=== PATIENT | female | born 1980 | race Caucasian/White ===

== ENCOUNTER 2016-08-06 06:28 | Emergency (ER) | payer OTHER ==
[~2016-08-06] VITALS: Ht 167.6 cm; Wt 84.8 kg
[2016-08-06 06:37] VITALS: BP 144/87
--- NOTE | 2016-08-06 07:23 | ED HAND/WRIST INJURY COMPLAINT ---
History of Present Illness General Chief Complaint: General Adult Stated Complaint: LAC TO RT POINTER FINGER/FEELING DIZZY Source: patient Exam Limitations: no limitations Vital Signs & Intake/Output Vital Signs & Intake/Output Vital Signs Date Time Temp Pulse Resp B/P Pulse O2 O2 Flow FiO2 Ox Delivery Rate 08/06 0637 98.1 100 16 144/87 98 Room Air Room Air Allergies Uncoded Allergies: Med Allergies DENIES Reconcile Medications No Known Home Medications Triage Note: 36YO FEMALE TO RM 5 VIA AMB FROM WORK SP FEELING DIZZY AFTER CUTTING HER FINGER WHILE AT WORK. STATES SHE BEGAN WORK AT 0500AND HAS NOT HAD ANYTHING TO EAT YET. Triage Nurses Notes Reviewed? yes Occurred: this morning Duration: hour(s):, constant, continues in ED Timing: single episode today Injury Environment: work Severity: mild Pain/Injury Location: Right: 2nd finger. : No Patient currently breastfeeds: No HPI: PT PRESENTS FOR EVAL OF RIGHT INDEX FINGER LACERATION THAT OCCURED THIS AM WITH AT WORK. FELT DIZZY AT THE TIME. EMS CONTACTED. OTHER THAN WOUND PAIN, PT FEELS WELL. Past History Travel History Traveled to [place] past 21 day No Medical History Any Pertinent Medical History? see below for history Surgical History Surgical History: non-contributory Psychosocial History What is your primary language Yoruba Tobacco Use: Never used Family History Hx Contributory? No Review of Systems Review of Systems Constitutional: Reports: no symptoms. EENTM: Reports: no symptoms. Respiratory: Reports: no symptoms. Cardiovascular: Reports: no symptoms. GI: Reports: no symptoms. Genitourinary: Reports: no symptoms. Musculoskeletal: Reports: no symptoms. Skin: Reports: see HPI. Neurological/Psychological: Reports: no symptoms. Hematologic/Endocrine: Reports: no symptoms. Immunologic/Allergic: Reports: no symptoms. All Other Systems: Reviewed and Negative Physical Exam Physical Exam Hand Left: normal inspection Hand Right: SEE BELOW/DIAGRAM Comments: Gen.: Well-nourished, well-developed, no acute respiratory distress. Head: Normocephalic, atraumatic. Eyes: Normal inspection bilaterally Ears: Normal inspection bilaterally Nose: Normal inspection, nasal cannula in place Throat/mouth : Moist mucosa Neck: Supple, full range of motion, no goiter Heart: Regular rate and rhythm Lungs: Quiet respirations Back: Normal range of motion Extremities: Right hand: Jagged superficial laceration present to the ulnar aspect of the right first distal phalanx, length is approximately 3-4 mm, width approximately 1-2 mm Neurologic: Cranial nerves grossly intact, speech is clear Skin: warm and dry Psychiatric: Calm, cooperative, no apparent delusions or hallucinations Diagram Hands Back 1) LACERATION Progress Differential Diagnosis: laceration Plan of Care: Current Medications Sig/Ruchi Start time Last Medication Dose Stop Time Status Admin Tetanus/Diphtheria 0.5 ML ONCE ONE 08/06 729 UNVr Toxoids Adsorbed 08/06 730 (Decavac) Comments: Patient will be given a tetanus immunization. I do not feel she needs antibiotics given the superficial nature of the wound. Departure Departure Disposition: HOME OR SELF CARE Condition: Stable Clinical Impression Primary Impression: Laceration of right index finger Secondary Impressions: Need for prophylactic vaccination with tetanus-diphtheria (TD) Referrals: PATIENT HAS NO PRIMARY CARE DR (PCP/Family) Additional Instructions: Bacitracin and gauze dressing over the next 3-4 days then dry gauze dressing as needed. Protect the wound from consistent moisture or other contaminants. [facility]. Return if any concerns or sudden worsening. Thank you for choosing the [facility] for your care. It was a pleasure to serve you today. Carlos Gamino M.D. [facility] Departure Forms: Customer Survey Employee Industrial Acc[employer] General Discharge Information Prescriptions: Current Visit Scripts No Known Home Medications
== END 2016-08-06 07:47 ==
LOC: ERH 06:28
DX: S61.210A Laceration without foreign body of right index finger without damage to nail, initial encounter (principal); W45.8XXA Other foreign body or object entering through skin, initial encounter; Y92.9 Unspecified place or not applicable; Y93.9 Activity, unspecified
CPT/HCPCS: 90471; 90714